=== PATIENT | female | born 1965 | race Caucasian/White ===

== ENCOUNTER → 2024-04-18 17:50 | Outpatient (REF) | payer OTHER, SELFPAY | LOC: MRI 17:50 | PROVIDERS: ATTENDING PHYSICIAN Otolaryngology; FAMILY PHYSICIAN Physician Assistant Medical | DX: H90.A21 Sensorineural hearing loss, unilateral, right ear, with restricted hearing on the contralateral side (principal) | CPT/HCPCS: 70553; A9575 ==

== ENCOUNTER → 2024-06-23 11:43 | Outpatient (REF) | payer OTHER, SELFPAY | LOC: RAD 11:43 | PROVIDERS: ATTENDING PHYSICIAN Internal Medicine; FAMILY PHYSICIAN Physician Assistant Medical | DX: S89.91XA Unspecified injury of right lower leg, initial encounter (principal) | CPT/HCPCS: 73564 ==